=== PATIENT | male | born 1995 | race Two or more races ===

== ENCOUNTER 2020-01-06 10:17 | Emergency (ER) | payer SELFPAY ==
[2020-01-06 10:28] VITALS: BP 154/70
--- NOTE | 2020-01-06 11:09 | ER Document Report ---
HPI - HPI Patient complains to provider of: Bilateral foot pain Time Seen by Provider: 01/06/20 11:00 Onset: Other - 3 years Onset/Duration: Worse Quality of pain: Achy Pain Level: 3 Context: Patient presents complaining of pain to the posterior aspect of bilateral heels for the past 3 years that has worsened recently. Patient states that he wants to be more active although with increased activity has increased pain. Patient denies any specific trauma. Patient denies any use of steroids or recent antibiotics. Patient denies any fever. Associated Symptoms: Other - Lateral heel pain Exacerbated by: Movement Relieved by: Denies Similar symptoms previously: No Recently seen / treated by doctor: No - ROS ROS below otherwise negative: Yes Systems Reviewed and Negative: Yes All other systems reviewed and negative - CONSTITUTIONAL Constitutional: DENIES: Fever - NEURO Neurology: DENIES: Weakness - MUSCULOSKELETAL Musculoskeletal: REPORTS: Extremity pain - DERM Skin Color: Normal Skin Problems: None Past Medical History - General Information source: Patient - Social History Smoking Status: Never Smoker Frequency of alcohol use: None Drug Abuse: None Occupation: Foodservice Family History: Reviewed & Not Pertinent - Medical History Medical History: Negative Surgical Hx: Negative Vertical Provider Document - CONSTITUTIONAL Agree With Documented VS: Yes Exam Limitations: No Limitations General Appearance: WD/WN, No Apparent Distress - HEENT HEENT: Atraumatic, Normocephalic - NECK Neck: Normal Inspection, Supple - RESPIRATORY Respiratory: Breath Sounds Normal, No Respiratory Distress - CARDIOVASCULAR Cardiovascular: Regular Rate, Regular Rhythm Pulses: Normal: Dorsalis pedis - MUSCULOSKELETAL/EXTREMETIES Musculoskeletal/Extremeties: MAEW, FROM, Tender - Tenderness to posterior aspect of bilateral calcaneus at insertion point of Achilles tendon, no erythema, no calor, normal Melgar squeeze test, No Edema - NEURO Level of Consciousness: Awake, Alert, Appropriate Motor/Sensory: No Motor Deficit, No Sensory Deficit - DERM Integumentary: Warm, Dry, No Rash Course - Re-evaluation Re-evalutation: 01/06/20 11:12 Patient with pain to the attachment point of the Achilles tendon to the calcaneus, no overlying erythema or edema, no concern for rupture at this time. Normal gait. Patient encouraged to put heel lifts in his shoes that wear shoes that do not rub on the back of his foot and to follow-up with podiatry. Discussed worsening symptoms of patient should return. Patient agreeable with discharge plan of care. - Vital Signs Vital signs: Temp Pulse Resp BP Pulse Ox 98.0 F 98 16 154/70 H 99 01/06/20 10:27 01/06/20 10:27 01/06/20 10:27 01/06/20 10:27 01/06/20 10:27 Discharge - Discharge Clinical Impression: Achilles tendinitis Qualifiers: Laterality: bilateral Qualified Code(s): M76.61 - Achilles tendinitis, right leg Condition: Stable Disposition: HOME, SELF-CARE Instructions: Anti-Inflammatory Medication ([facility]), Tendonitis ([facility]) Additional Instructions: Return immediately for any new or worsening symptoms Followup with your primary care provider, call tomorrow to make a followup appointment Wear a heel insert in each shoe. Wear shoes that do not rub the back of your foot. Follow-up with podiatry orthopedics for further management, call today to make a follow-up appointment. Prescriptions: Naproxen [Naprosyn 250 Nmg Tablet] 1 tab PO BID #14 tablet Forms: Return to Work Referrals: ROBERTO JARAMILLO DPM [ACTIVE STAFF] - Follow up as needed JERMAINE KAPLAN DPM [ACTIVE STAFF] - Follow up as needed [facility] [Provider Group] - Follow up as needed
== END 2020-01-06 11:11 | disposition home or self-care (01) ==
LOC: ER 10:17
DX: M76.61 Achilles tendinitis, right leg (principal); M79.671 Pain in right foot; M79.672 Pain in left foot
CPT/HCPCS: 99283